=== PATIENT | male | born 1950 | race American Indian/Alaskan Native ===

== ENCOUNTER 2018-02-11 13:56 | Emergency (ER) | payer BC ==
[2018-02-11 14:20] VITALS: BP 124/89
--- NOTE | 2018-02-11 17:12 | Emergency Department Report ---
ED General Adult HPI - General Chief complaint: High BP Stated complaint: HIGH BLOOD PRESSURE Time Seen by Provider: 02/11/18 16:44 Source: patient Mode of arrival: Ambulatory Limitations: No Limitations - History of Present Illness Initial comments: Patient is a 67-year-old -[place] male who states that early today he had an episode where he just felt very sluggish and tired. Patient blood pressure was roughly 150 systolic. Patient took an extra metoprolol and now states he feels much improved. Patient takes one metoprolol pill daily. Patient is denying any current chest pain shortness of breath fevers chills nausea vomiting headache or focal neurological deficit. - Related Data Allergies Allergy/AdvReac Type Severity Reaction Status Date / Time No Known Allergies Allergy Verified 02/11/18 14:20 ED Review of Systems ROS: Stated complaint: HIGH BLOOD PRESSURE Other details as noted in HPI Comment: All other systems reviewed and negative ED Past Medical Hx - Past Medical History Previous Medical History?: Yes Hx Hypertension: Yes Additional medical history: prostate CA - Surgical History Past Surgical History?: Yes Additional Surgical History: hernia repair, prostate - Social History Smoking Status: Former Smoker Substance Use Type: None ED Physical Exam - General Limitations: No Limitations General appearance: alert, in no apparent distress - Head Head exam: Present: atraumatic, normocephalic - Eye Eye exam: Present: normal appearance - ENT ENT exam: Present: mucous membranes moist - Neck Neck exam: Present: normal inspection - Respiratory Respiratory exam: Present: normal lung sounds bilaterally. Absent: respiratory distress - Cardiovascular Cardiovascular Exam: Present: regular rate, normal rhythm. Absent: systolic murmur, diastolic murmur, rubs, gallop - GI/Abdominal GI/Abdominal exam: Present: soft, normal bowel sounds. Absent: distended, tenderness, guarding - Rectal Rectal exam: Present: deferred - Extremities Exam Extremities exam: Present: normal inspection - Back Exam Back exam: Present: normal inspection - Neurological Exam Neurological exam: Present: alert, oriented X3 - Psychiatric Psychiatric exam: Present: normal affect, normal mood - Skin Skin exam: Present: warm, dry, intact, normal color. Absent: rash ED Course Vital Signs 02/11/18 14:15 Temperature 99.6 F Pulse Rate 66 Respiratory 16 Rate Blood Pressure 124/89 O2 Sat by Pulse 100 Oximetry ED Medical Decision Making - EKG Data -: EKG Interpreted by Me EKG shows normal: sinus rhythm, axis, intervals, QRS complexes, ST-T waves Rate: normal - EKG Data Interpretation: normal EKG - Medical Decision Making He states that he had a stress test not long ago and did fine. However he's scheduled for cardiac cath in the morning. Patient normally takes more metoprolol daily and seems to have felt better taking it last night and also this afternoon for VID distribution. Patient may need to have his metoprolol use frequency increase. Patient will discuss this with his shirt bander tomorrow. Critical care attestation.: If time is entered above; I have spent that time in minutes in the direct care of this critically ill patient, excluding procedure time. ED Disposition Clinical Impression: Hypertensive urgency Disposition: DC-01 TO HOME OR SELFCARE Is pt being admited?: No Does the pt Need Aspirin: No Condition: Stable Instructions: Hypertension (ED) Additional Instructions: To Mr. Saldana's primary care physician or shirt bander. Pt takes metoprolol 25 mg nightly. Patient took a twice a day today and seems to have felt better. Patient may need to take 25 mg twice a day.
== END 2018-02-11 17:39 | disposition home or self-care (01) ==
LOC: ED 13:56
DX: I10 Essential (primary) hypertension (principal); Z87.891 Personal history of nicotine dependence
CPT/HCPCS: 93005; 93010; 99282